=== PATIENT | female | born 1985 | race Caucasian/White ===

== ENCOUNTER 2017-04-02 00:23 | Emergency (ER) | payer BC, OTHER ==
[~2017-04-02] VITALS: Ht 157.5 cm; Wt 77.1 kg
[~2017-04-02 00:23] MED LIST: OXYC-281 PO
[2017-04-02 00:26] VITALS: Ht 157.5 cm; Wt 77.1 kg
[2017-04-02] MEDS ORDERED: ONDANSETRON 4 MG INJ IV STA (01:51)
[2017-04-02] MEDS ORDERED: morphine 4 MG/ML VIAL IV STA ×2 (01:51→03:05)
[2017-04-02] MEDS ORDERED: SOD CHLORIDE 0.9% 1,000 ML IV STA (01:51)
[2017-04-02] MEDS ORDERED: CEFTRIAXONE 1 GM/50 ML (PMX) 50 ML IVPB ONE (02:00)
[2017-04-02] MEDS ORDERED: VANCOMYCIN 1 GM (PMX) 250 ML IVPB SCH (02:00)
--- NOTE | 2017-04-02 02:29 | RADRPT ---
PROCEDURE: XR Foot. CLINICAL INDICATION: Pain and swelling. TECHNIQUE: AP, lateral and oblique views of the left foot was obtained. The images were reviewed on a PACS workstation. COMPARISON: None. FINDINGS: The bones of the foot appear intact, with no evidence of fracture, dislocation, or subluxation. The joint spaces are preserved. Bone mineralization is normal. Soft tissue swelling which overlies the p lantar aspect of the metatarsal bones and proximal phalanges. Calcaneal enthesopathy at the attachme nt of the plantar aponeurosis is present IMPRESSION: 1. Soft tissue swelling which overlies the plantar and dorsal aspects of the metatarsal bones and p roximal phalanges. 2. Calcaneal enthesopathy at the attachment of the plantar aponeurosis. RPTAT: HRSR Physician Ra Date Time Electronically viewed and signed by Physician Ra on 04/02/2017 02:29 /
[2017-04-02] MEDS ORDERED: HYDR-906 PO (03:42)
--- NOTE | 2017-04-02 03:42 | ERD ---
ER Documentation Chief Complaint Chief Complaint Left foot swelling/pain HPI The patient is a 31-year-old female, with no significant past medical history, who presents to the Emergency Department with complaint of pain, swelling, redness to the left foot. The patient reports that for the past 4 days she has developed swelling, erythema, warmth and tenderness to the left foot. The pain is constant, pulsating/throbbing in nature, localized to the left foot, with no radiation. She rates her current pain as 10/10, but notes that she has not yet taken any medication for pain relief. Her pain is worse with palpation, movement of the toes, and with ambulation. There are no known alleviating factors. Denies fevers, sweats, chills, nausea, vomiting. Denies numbness, tingling, weakness of the distal extremity. Denies restricted range of motion. The patient denies any recent known trauma to the foot. She notes that approximately 3 weeks ago she accidentally banged her left foot. However, she had no pain afterwards, and was able to ambulate without difficulty. Then, two weeks ago, while hiking, she accidentally slid down the side of the hill, but didn't fall or invert her foot. ROS All systems reviewed and are negative except as per history of present illness. Medications Home Meds Active Scripts Tramadol HCl (Tramadol HCl) 50 Mg Tablet, 50 MG PO Q6 Y for PAIN, #15 TAB Prov:LONG ZUNIGA PA-C 04/02/17 Bacitracin* (Bacitracin Oint (UD)*) 1 Applic Oint, 1 APPLIC TOP BID for 7 Days, PKT APPLY TO Prov:LONG ZUNIGA PA-C 04/02/17 Ibuprofen* (Motrin*) 600 Mg Tab, 600 MG PO Q6, #30 TAB Prov:LONG ZUNIGA PA-C 04/02/17 Clindamycin Hcl* (Clindamycin Hcl*) 300 Mg Capsule, 300 MG PO QID for 10 Days, CAP Prov:LONG ZUNIGA PA-C 04/02/17 Oxycodone Hcl-Acetaminophen* (Percocet*) 5-325 Mg Tablet, 1 TAB PO TID Y for PAIN, #12 TAB Prov:AMADO FISHER MD 10/16/15 Allergies Allergies: Coded Allergies: No Known Allergies (Verified Allergy, Unknown, 5/24/16) PMhx/Soc History of Surgery: Yes () Anesthesia Reaction: No Hx Neurological Disorder: No Hx Respiratory Disorders: No Hx Cardiac Disorders: No Hx Psychiatric Problems: No Hx Miscellaneous Medical Probl: Yes (SCOLIOSIS) Hx Alcohol Use: Yes (SOCIALLY) Hx Substance Use: Yes (MARIJUANA) Hx Tobacco Use: Yes Smoking Status: Current some day smoker Physical Exam Vitals Vital Signs Date Time Temp Pulse Resp B/P Pulse Ox O2 Delivery O2 Flow Rate FiO2 04/02/17 04:04 98.5 96 18 125/86 100 Room Air 04/02/17 00:26 96.8 109 20 139/83 98 Physical Exam GENERAL: Well-developed, well-nourished, in no acute distress. HEENT: Head is normocephalic, atraumatic. No scleral pallor or icterus. Pupils equal, round and reactive to light. Extraocular movements intact. Conjunctiva pink. Moist mucous membranes. Clear oropharynx. NECK: Supple. Full range of motion. RESPIRATORY: Lungs are clear to auscultation bilaterally. Equal breath sounds. Normal expiratory effort. CARDIOVASCULAR: Regular rate and rhythm. S1 and S2 normal. GASTROINTESTINAL: Abdomen is soft, nontender, and nondistended. BACK: Normal range of motion. EXTREMITIES: Swelling to dorsum and plantar aspect of left foot, with overlying erythema, warmth, tenderness. Wounds noted to the proximal toes on the plantar aspect of the foot, and in between the 1st and 2nd digits of the left foot. Pain is worse with palpation and movement of the toes. No fluctuance. No abscess formation. No clubbing or cyanosis. Normal skin perfusion. Full range of motion of both the upper and lower extremities bilaterally. Muscle tone is normal. Distal pulses are palpable, 2+ bilaterally. Capillary refill is less than 2 seconds. Compartments are soft. NEUROLOGIC: The patient is alert, awake, and oriented x 3. No focal neurologic deficits. Motor normal in all extremities. Sensation grossly intact. INTEGUMENT: Skin is clean, dry. See EXTREMITIES exam. PSYCHIATRIC: Appropriate; Cooperative. Result Diagram: 04/02/1721404/02/17214 Results 24 hrs Laboratory Tests Test 04/02/17 02:15 White Blood Count 10.210^3/ul Red Blood Count 4.1910^6/ul Hemoglobin 12.6g/dl Hematocrit 37.7% Mean Corpuscular Volume 90.0fl Mean Corpuscular Hemoglobin 30.1pg Mean Corpuscular Hemoglobin Concent 33.4g/dl Red Cell Distribution Width 12.5% Platelet Count 07538^3/UL Mean Platelet Volume 10.0fl Neutrophils % 65.4% Lymphocytes % 21.4% Monocytes % 9.2% Eosinophils % 2.8% Basophils % 0.8% Nucleated Red Blood Cells % 0.0/100WBC Neutrophils # 6.710^3/ul Lymphocytes # 2.210^3/ul Monocytes # 0.910^3/ul Eosinophils # 0.310^3/ul Basophils # 0.110^3/ul Nucleated Red Blood Cells # 0.010^3/ul Erythrocyte Sedimentation Rate 47mm/Hr Sodium Level 142mmol/L Potassium Level 3.8mmol/L Chloride Level 107mmol/L Carbon Dioxide Level 27mmol/L Anion Gap 12 Blood Urea Nitrogen 14mg/dl Creatinine 0.84mg/dl Glucose Level 94mg/dl Calcium Level 8.9mg/dl Total Bilirubin 0.2mg/dl Direct Bilirubin 0.00mg/dl Indirect Bilirubin 0.2mg/dl Aspartate Amino Transf (AST/SGOT) 49IU/L Alanine Aminotransferase (ALT/SGPT) 80IU/L Alkaline Phosphatase 185IU/L Total Protein 7.1g/dl Albumin 3.8g/dl Globulin 3.30g/dl Albumin/Globulin Ratio 1.15 Current Medications Medications (Trade) Dose Ordered Sig/Wai Route PRN Reason Start Time Stop Time Status Last Admin Dose Admin Sodium Chloride (NS) 1,000 ml @ 1,000 mls/hr Q1H STAT IV 04/02/17 01:51 04/02/17 02:50 DC 04/02/17 02:26 Morphine Sulfate (morphine) 4 mg ONCE STAT IV 04/02/17 01:51 04/02/17 01:55 DC 04/02/17 02:26 Ondansetron HCl 4 mg 4 mg ONCE STAT IV 04/02/17 01:51 04/02/17 01:55 DC 04/02/17 02:26 Ceftriaxone Sodium 50 ml @ 100 mls/hr ONCE ONCE IVPB 04/02/17 02:00 04/02/17 02:29 DC 04/02/17 02:27 Vancomycin HCl (Vancocin) 250 ml @ 125 mls/hr ONCE IVPB 04/02/17 02:00 04/02/17 03:59 DC 04/02/17 02:54 Morphine Sulfate (morphine) 4 mg ONCE STAT IV 04/02/17 03:05 04/02/17 03:06 DC 04/02/17 03:16 Diphtheria/ Tetanus/Acell Pertussis (Adacel) 0.5 ml ONCE ONCE IM* 04/02/17 04:30 04/02/17 04:31 DC Diphenhydramine HCl (Benadryl) 25 mg ONCE ONCE IV 04/02/17 05:00 04/02/17 05:01 DC 04/02/17 04:52 Procedures/MDM EMERGENCY DEPARTMENT COURSE: The patient's case was reviewed and discussed with ED supervising physician, Dr. Gong, who evaluated the patient bedside. Recommends cleansing of the foot, with application of Bacitracin. Further, recommends laboratory testing, x-ray imaging, and administration of IV antibiotics. Vancomycin and Rocephin administered. Morphine administered for pain relief. On reevaluation, the patient reports no new complaints. Dr. Gong recommends discharge home with prescription for Clindamycin. DIAGNOSTIC TESTS AND INTERPRETATION: PROCEDURE: XR Foot. CLINICAL INDICATION: Pain and swelling. TECHNIQUE: AP, lateral and oblique views of the left foot was obtained. The images were reviewed on a PACS workstation. COMPARISON: None. FINDINGS: The bones of the foot appear intact, with no evidence of fracture, dislocation, or subluxation. The joint spaces are preserved. Bone mineralization is normal. Soft tissue swelling which overlies the plantar aspect of the metatarsal bones and proximal phalanges. Calcaneal enthesopathy at the attachment of the plantar aponeurosis is present IMPRESSION: 1. Soft tissue swelling which overlies the plantar and dorsal aspects of the metatarsal bones and proximal phalanges. 2. Calcaneal enthesopathy at the attachment of the plantar aponeurosis. Physician Ra Date Time Electronically viewed and signed by Physician Ra on 04/02/2017 02 :29 MEDICAL DECISION MAKING: This is a 31-year-old female presenting to the Emergency Department with a developing cellulitis with few wounds to the left foot that began 4 days ago. On physical examination, the patient had swelling, warmth, tenderness and erythema to the left foot, extending towards the toes, with a few wounds to the plantar aspect of the distal foot, near the base of the toes. The patient had no bleeding. No lymphatic streaking. No crepitus. No pain out of proportion to examination. Compartments are soft, with no evidence of compartment syndrome. The patients oropharynx and airway were stable, and she was afebrile with no recent history of fevers or chills. Laboratory testing performed, with no leukocytosis. X-ray imaging revealed soft tissue swelling which overlies the the plantar and dorsal aspects of the metatarsal bones and proximal phalanges. Otherwise, no mention of findings concerning of osteomyelitis. The patient was given a dose of Vancomycin and Rocephin in the ED. He foot was soaked, irrigated/cleansed with normal saline, and then bacitracin and dressing was applied. Patient was then provided crutches. At this time the patient is in stable condition and therefore she can be discharged home with prescriptions for Tramadol, Bacitracin, Ibuprofen and Clindamycin and strict return precautions for signs of deteriorating or worsening condition. The patient is strongly advised to follow up with a primary care provider within 1-2 days for reevaluation and further management, or return to the ER sooner for worsening symptoms. Additionally, she is advised to return sooner if she notices the erythema spreading beyond the current borders. I shared my medical decision making and plan with the patient and she verbally understands and agrees with the plan for further observation and care as an outpatient. At the time of discharge all questions were answered. Departure Diagnosis: Primary Impression: Cellulitis of left foot Condition: Stable Patient Instructions: Cellulitis Additional Instructions: Follow up with your primary medical provider in 1-2 days for wound check, reevaluation and further management. Return to the ED sooner for any new or worsening symptoms. LONG ZUNIGA PA-C Apr 02, 2017 03:42
[2017-04-02] MEDS ORDERED: IBUP-1542 PO (03:43)
[2017-04-02] MEDS ORDERED: CLIN-73 PO (03:43)
[2017-04-02] MEDS ORDERED: BACITUD TOP (03:44)
[2017-04-02 04:04] VITALS: BP 125/86; PULSE 96; RESP 18; TEMP 98.5
[2017-04-02] MEDS ORDERED: DIPHTH/TET/ACEL PERTUSS (ADULT) 0.5 ML VIAL IM* ONE (04:30)
[2017-04-02] MEDS ORDERED: DIPHENHYDRAMINE 50 MG INJ IV ONE (05:00)
[2017-04-02] MEDS ORDERED: TRAM50TA2 PO (05:02)
== END 2017-04-02 05:05 | disposition home or self-care (01) ==
LOC: FTE 00:23
DX: L03.116 Cellulitis of left lower limb (principal)
CPT/HCPCS: 36415; 73630; 80053; 85025; 85651; 90715; 96374; 96375; 96376; J0696; J1200; J2270; J2405; J3370; J7030; Z7502